=== PATIENT | female | born 1980 | race Asian ===

== ENCOUNTER 2016-11-16 04:33 | Inpatient (IN) | payer BC ==
[~2016-11-16] VITALS: Ht 157.5 cm; Wt 50.4 kg
[2016-11-16 06:49] VITALS: Ht 157.5 cm; Wt 50.4 kg
[2016-11-16 06:52] VITALS: BP 109/73
[2016-11-16 06:57] VITALS: BP 109/75; RESP 18
[2016-11-16 09:03] VITALS: BP 101/66; RESP 16
[2016-11-16] MEDS ORDERED: hydrALAzine 20 MG INJ IV PRN (09:30)
[2016-11-16] MEDS ORDERED: NACL 0.9% 3 ML SYG IV SCH (09:30)
[2016-11-16] MEDS ORDERED: NA PHOSPHATE/BIPHOS 133 ML ENEMA PR PRN (09:30)
[2016-11-16] MEDS ORDERED: DOCUSATE SODIUM 100 MG CAP PO PRN (09:30)
[2016-11-16] MEDS ORDERED: ACETAMINOPHEN 325 MG TAB PO PRN (09:30)
[2016-11-16] MEDS ORDERED: ALBUTEROL/IPRATROPIUM (NEB) 3 ML AMP HHN PRN (09:30)
[2016-11-16] MEDS ORDERED: NITROGLYCERIN (SL) 0.4 MG TAB SL PRN (09:30)
[2016-11-16] MEDS ORDERED: MAGNESIUM HYDROXIDE 30ML CUP PO PRN (09:30)
[2016-11-16] MEDS ORDERED: LORAZEPAM 2 MG INJ IV PRN (09:30)
[2016-11-16] MEDS: ONDANSETRON 4 MG INJ IV PRN ×2 (09:47→15:51)
[2016-11-16] MEDS: SOD CHLORIDE 0.45% 1,000 ML IV SCH ×3 (09:47→23:42)
[2016-11-16] MEDS: morphine 2 MG INJ IV PRN (09:47)
[2016-11-16 10:36] LABS: INR 1.04; PROTIME 13.6 Sec (12.2-14.2); PT RATIO 1.1
[2016-11-16 10:37] LABS: PARTIAL THROMBOPLASTIN TIME 33.8 Sec (25.0-35.0)
--- NOTE | 2016-11-16 10:38 | CONS ---
Date/Time of Note Date/Time of Note DATE: 11/16/16 TIME: 10:38 Assessment/Plan Assessment/Plan Additional Assessment/Plan [facility] IN[facility]IENT CONSULTATION NOTE DATE OF SERVICE: 11/16/2016 PLACE OF SERVICE: [facility], fourth floor ASSESSMENT AND PLAN: A very-pleasant 36-year-old lady presenting with thrombosed external hemorrhoid, grade 4. She requires exam under anesthesia and likely, hemorrhoidectomy. Unknown whether there is an underlying issue with rectal prolapse given the patient's history. I can discern this a bit better under anesthesia with proctoscopy. Patient may require further expertise if complicated pelvic floor issues are identified. Explained to patient and her and answered all questions. The patient and her appear to understand and agreed with the plans. With above assessment, I've recommended the followin. Agree with inpatient status 2. Apply Xylocaine Jelly and sprinkle sugar on the hemorrhoid area 3. Treat symptoms 4. Stool softeners 5. On the schedule for exam under anesthesia and possible hemorrhoidectomy Thank you very much for having me involved in the care of this very pleasant patient and wonderful family. If you have any questions, please feel free to contact me at [phone]. Nature of presenting problem: Low to moderate severity Please note that, given the limited number of diagnoses or management options, the limited amount and/or complexity of data needed to be reviewed, and low to moderate risk of complications and/or morbidity or mortality, this qualifies as low to moderate complexity type of decision-making. Disclaimer: Inadvertent spelling and grammatical errors are likely due to EHR/ dictation software use and do not reflect on the quality of delivered patient care. Also, please note that the electronic time recorded on this node does not necessarily reflect the actual time of the visit. Updated clinical summary: Patient is a very-pleasant 36-year-old lady presenting with thrombosed external hemorrhoid, grade 4. She requires exam under anesthesia and likely, hemorrhoidectomy. Comorbidities: 1. Long history of anal issues with 2 month history of hemorrhoid pain. Unable to get access to care. CONSULTATION REQUESTED BY: Piedad Bee MD HISTORY OF PRESENT ILLNESS: The patient is a very-pleasant 36-year-old lady presenting with thrombosed external hemorrhoid, grade 4. She requires exam under anesthesia and likely, hemorrhoidectomy. Rectal pain of 2 months duration. Painful BM and rectal bleeding. Constant in nature. Moderate degree of symptoms. Bowel movements make it worse. No history of bleeding tendencies. Patient reports having long-term issues with protruding tissue from her anus that until now have been easily reducible by herself. She has had 2 months of pain and has sought care from her primary care physician who referred her to a specialist. They have not been able to see a specialist for the last 2-3 weeks and they were in the process of getting rerouted to another specialist. The symptoms became unbearable and the patient was transferred to [facility] after being seen at [facility] due to insurance reasons. Patient herself did not have any other major complaints during my visit. No prior childbirth (patient did have a miscarriage many years ago and has not had any vaginal deliveries, pelvic operations, or other perianal operations). Weight has been stable. Issues with constipation. ALLERGIES: NO KNOWN DRUG ALLERGIES MEDICATIONS Documented in the electronic records and reviewed by me. Please see the electronic records for details, as well as details for inpatient medications which were also reviewed by me. Home medications include aspirin, docusate, and loratadine. SOCIAL HISTORY: The patient lives with family.-Tob;-ETOH;-IVDU FAMILY HISTORY: There are no significant medical, surgical or oncologic issues in the family as reported by the patient or reflected in the chart. REVIEW OF SYSTEMS: Other than mentioned above, there were no other pertinent positives or pertinent negatives in an otherwise complete 14 point review of systems. PHYSICAL EXAMINATION GENERAL: The patient appears to be a very pleasant [place] lady of non- but [place] descent lying in bed, appearing stated age, and otherwise in no acute distress. BMI: 20.3 VITAL SIGNS: Temperature 97.8, blood pressure 101/66, respiratory rate 16, pulse 56, pulse oximetry 97% on room air. (please also see auto important data if available as well as the electronic records) HEENT: Normocephalic and atraumatic. Extraocular muscles and hearing are grossly intact bilaterally and symmetrically. Sclerae are nonicteric. Oral cavity is clear; oral mucosa appear to be pink and moist. Dentition: fair. NECK: Supple. There is no lymphadenopathy or JVD. There is no submental, submandibular or supraclavicular lymphadenopathy. CHEST: Rises symmetrically with each breath; patient is breathing comfortably. There are no audible wheezes, rales or rhonchi on the gross exam. HEART: Pulse is regular and palpable on the right wrist. Capillary refill is normal. Carotid pulses are palpable bilaterally and symmetrically in the neck. EXTREMITIES: Lower extremities contain no pitting edema around the ankles bilaterally and symmetrically. ABDOMEN: Abdomen is soft, nontender and nondistended. No evidence of ascites, organomegaly, caput medusae, engorged subcutaneous veins, or other abnormalities. There are no peritoneal signs or guarding. Annual exam was done but in a limited fashion. There was external hemorrhoids which were tender to palpation. There is no evidence of bleeding. No evidence of necrosis. I did not do a rectal exam and reserve this for exam under anesthesia. SKIN: Appears to be pink and feels warm to touch. NEUROLOGIC: Awake, alert, and follows commands appropriately. LABORATORY DATA: Outside laboratory review from [facility] 11/15/2016: Urinalysis negative for nitrites or leukocyte esterase. White blood cell count 6.5, globin 12.7, platelets 177. INR 1.1. Electrolytes normal. CO2 28. Creatinine 0.99. Regnancy test negative. IMAGING: No available images at the time of admission. Consultation Date/Type/Reason Admit Date/Time Nov 16, 2016 at 06:27 Exam/Review of Systems Vital Signs Vitals Vital Signs Date Time Temp Pulse Resp B/P Pulse Ox O2 Delivery O2 Flow Rate FiO2 11/16/16 09:03 97.8 56 16 101/66 97 Results Results 24 hrs Laboratory Tests Test 11/16/16 09:26 Prothrombin Time 13.6 Prothrombin Time Ratio 1.1 INR International Normalized Ratio 1.04 Activated Partial Thromboplast Time 33.8 Medications Medications Current Medications Ondansetron HCl (Zofran Inj) 4 mg Q6H PRN IV NAUSEA AND/OR VOMITING Last administered on 11/16/16t 09:47; Admin Dose 4 MG; Start 11/16/16 at 09:30 Acetaminophen (Tylenol Tab) 650 mg Q6H PRN PO PAIN LEVEL 1-3 OR FEVER; Start at 09:30 Acetaminophen/ Hydrocodone Bitart ([place] (5/325)) 1 tab Q6H PRN PO MODERATE PAIN LEVEL 4-6; Start 11/16/16 at 09:30 Morphine Sulfate (morphine) 2 mg Q4H PRN IV SEVERE PAIN LEVEL 7-10 Last administered on 11/16/16 09:47; Admin Dose 2 MG; Start 11/16/16 at 09:30 Docusate Sodium (Colace) 100 mg Q12H PRN PO CONSTIPATION; Start 11/16/16 at 09: 30 Magnesium Hydroxide (Milk Of Mag) 30 ml DAILY PRN PO CONSTIPATION; Start at 09:30 Sodium Biphosphate/ Sodium Phosphate (Fleet Enema) 133 ml DAILY PRN [place] CONSTIPATION; Start 11/16/16 at 09:30 Pantoprazole (Protonix Iv) 40 mg DAILY@06 IV ; Start 11/17/16 at 06:00 Heparin Sodium (Porcine) 5000 unit 5,000 unit Q12 SC ; Start 11/16/16 at 21:00 Sodium Chloride (1/2 NS) 1,000 ml @ 75 mls/hr [id number] IV Last administered on 11/16/16 09:47; Admin Dose 75 MLS/HR; Start 11/16/16 at 09:04 Lorazepam (Ativan) 0.5 mg Q6H PRN IV ANXIETY; Start 11/16/16 at 09:30 Hydralazine HCl (Apresoline) 10 mg Q6H PRN IV ELEVATED BLOOD PRESSURE; Start at 09:30 Nitroglycerin (Nitroglycerin (Sl Tab) 0.4 Mg) 1 tab Q5M PRN SL ANGINA; Start at 09:30 DEANN MALONE M.D. Nov 16, 2016 10:38
[2016-11-16] MEDS ORDERED: LIDOCAINE 2% JELLY 30 ML TOP SCH (11:00)
[2016-11-16] MEDS ORDERED: LIDOCAINE 2% JELLY 5 ML TOP SCH (11:30)
--- NOTE | 2016-11-16 12:30 | HP ---
DATE OF ADMISSION: 11/16/2016 CHIEF COMPLAINT: Rectal pain. HISTORY OF PRESENT ILLNESS: A 36-year-old female with no significant past medical history, who was transferred over to our hospital due to insurance purposes as she initially presented there earlier today with rectal pain that has been going off and on for the last two months. Apparently she has a history of hemorrhoids and complaining of painful bowel movements and rectal bleeding. She is having some mild headache symptoms but no loss of consciousness. No blurry vision. No dysuria. No hematuria. No upper GI bleeding. No fevers or chills. No diarrhea or constipation. When she went to the outside hospital, she was evaluated by the ER team and apparently General Surgery team there and was diagnosed with large bleeding thrombosed external hemorrhoids, but again transferred over here due to insurance purposes and has been evaluated by surgery team here. PAST MEDICAL HISTORY: As above. ALLERGIES: NO KNOWN DRUG ALLERGIES. MEDICATIONS: None. PAST SURGICAL HISTORY: None. FAMILY HISTORY: Noncontributory. SOCIAL HISTORY: Negative for smoking, drinking, or IV drug abuse. PHYSICAL EXAMINATION: VITAL SIGNS: Today vital signs, T-max 37.1 Celsius, respirations 18, blood pressure 143/86, satting at 99 percent room air. GENERAL: Patient lying in bed, answers questions appropriately. No acute distress. HEENT: Pupils equal, round, reactive to light. Extraocular muscles are intact. NECK: Supple. No thyromegaly. LUNGS: Clear to auscultation bilaterally. CARDIOVASCULAR: S1, S2 heard. No rubs or gallops. ABDOMEN: Soft, nontender, nondistended. Normal bowel sounds. No rebound or guarding. GENITOURINARY: Deferred. MUSCULOSKELETAL: No lower extremity edema bilaterally. NEUROLOGIC: No focal deficits. LABS: UA shows trace ketones, but negative for nitrites, negative leukocyte esterase. WBC 6.5, hemoglobin 12.7, hematocrit 37.4, platelets 177. Sodium 138, potassium 4.4, chloride 102, CO2 28, BUN 9, creatinine 0.99, glucose of 96. ASSESSMENT AND PLAN: A 36-year-old female with rectal pain and rectal bleeding with signs of large bleeding thrombosed external hemorrhoids. 1. Thrombosed external hemorrhoids. We will admit the patient to med/surg and will get surgery consult. Per discussion with them through the nursing staff, most likely patient will need surgery in the next 24 hours. Continue pain control, medications, IV fluids, check TSH, A1c, lipid panel. Monitor for any signs of bleeding. Check CBC and basic metabolic panel in the morning. 2. GI prophylaxis. Protonix. 3. Next DVT prophylaxis. SCDs. Dictated By: Dewayne Bee MD /damon/stacie /Document#: [id number]
[2016-11-16] MEDS: HYDROCODONE/APAP (5/325) TAB PO PRN (15:43)
[2016-11-16 20:00] VITALS: BP 107/67; RESP 16
[2016-11-16] MEDS ORDERED: HEPARIN 5,000 UNIT/0.5 ML VIAL SC SCH (21:00)
[2016-11-17] VITALS (21 sets, daily range): BP systolic 91–111; BP diastolic 49–70; PULSE 69–94; RESP 16–77
[2016-11-17] MEDS: morphine 2 MG INJ IV PRN ×2 (02:32→08:54)
[2016-11-17 05:24] LABS: BASOPHIL # 0.1 10^3/ul (0.0-0.1); EOSINOPHILS # 0.3 10^3/ul (0.0-0.5); EOSINOPHILS % 4.2 % (0.0-7.0); HEMATOCRIT 36.5 % (37.0-47.0); HEMOGLOBIN 12.2 g/dl (12.0-16.0); LYMPHOCYTES # 1.7 10^3/ul (0.8-2.9); LYMPHOCYTES % 25.3 % (15.0-51.0); MEAN CORPUSCULAR HEMOGLOBIN 29.1 pg (29.0-33.0); MEAN CORPUSCULAR HGB CONC 33.4 g/dl (32.0-37.0); MEAN CORPUSCULAR VOLUME 87.1 fl (82.0-101.0); MEAN PLATELET VOLUME 11.4 fl (7.4-10.4); MONOCYTE # 0.4 10^3/ul (0.3-0.9); MONOCYTES % 6.1 % (0.0-11.0); NEUTROPHIL # 4.2 10^3/ul (1.6-7.5); NEUTROPHILS % 63.1 % (39.0-77.0); PLATELET COUNT 174 10^3/UL (140-415); RED BLOOD COUNT 4.19 10^6/ul (4.20-5.40); RED CELL DISTRIBUTION WIDTH 11.2 % (11.5-14.5); WHITE BLOOD COUNT 6.7 10^3/ul (4.8-10.8)
[2016-11-17 05:41] LABS: CALCIUM 8.8 mg/dl (8.4-10.2); CHOL/HDL RATIO 3.6 RATIO; CREATININE 0.78 mg/dl (0.44-1.00); MAGNESIUM 1.8 mg/dl (1.7-2.5); PHOSPHORUS 4.2 mg/dl (2.5-4.9); POTASSIUM 4.2 mmol/L (3.5-5.1)
[2016-11-17] MEDS ORDERED: PANTOPRAZOLE 40 MG INJ IV SCH (06:00)
[2016-11-17 07:51] LABS: THYROID STIMULATING HORMONE 0.621 MIU/L (0.465-4.680)
[2016-11-17] MEDS ORDERED: BUPIVACAINE 0.5%/EPI (SDV) 10 ML INJ ONE (13:06)
[2016-11-17] MEDS ORDERED: PROPOFOL 0 ML ONE (13:08)
[2016-11-17] MEDS ORDERED: SUCCINYLCHOLINE CHLORIDE 100 MG/5 ML SYG IV ONE ×2 (13:08→13:54)
[2016-11-17] MEDS ORDERED: ROCURONIUM 50 MG INJ ONE ×2 (13:08→13:54)
[2016-11-17] MEDS ORDERED: FENTAnyl 50 MCG/ML VIAL ONE (13:09)
[2016-11-17] MEDS ORDERED: METOCLOPRAMIDE 10 MG INJ ONE (13:09)
[2016-11-17] MEDS ORDERED: CEFAZOLIN 1 GM INJ ONE (13:09)
[2016-11-17] MEDS ORDERED: ONDANSETRON 4 MG INJ ONE (13:09)
[2016-11-17] MEDS ORDERED: FENTAnyl 50 MCG/ML VIAL IV PRN ×2 (13:30)
[2016-11-17] MEDS ORDERED: MEPERIDINE 25 MG INJ IV PRN (13:30)
[2016-11-17] MEDS ORDERED: ONDANSETRON 4 MG INJ IV PRN (13:30)
[2016-11-17] MEDS ORDERED: HYDROmorphONE (0.2 MG/ML) 10ML SYG IV PRN ×3 (13:30)
--- NOTE | 2016-11-17 13:37 | HPN ---
Date/Time of Note Date/Time of Note DATE: 11/17/16 TIME: 13:37 Interval H&P Admission Note Pt. seen H&P reviewed: No system changes Pt. seen H&P reviewed. No system changes (I attest that I have seen and examined the patient and reviewed the operation in detail, as well as its risks , benefits and alternatives of the operation). I attest that I have seen and examined the patient and reviewed in detail the operation, and its associated risks, benefits and alternative. I have answered all the patient's questions to the best of my ability and the patient wishes to proceed. Please refer to rest of electronic medical record for additional updates. DEANN MALONE M.D. Nov 17, 2016 13:37
[2016-11-17] MEDS ORDERED: PROPOFOL 20 ML ONE (13:54)
[2016-11-17] MEDS ORDERED: LIDOCAINE 2% 20 ML UROJET SYRINGE ONE (14:42)
[2016-11-17] MEDS: D5W-0.45 NACL + KCL 20 MEQ 1,000 ML IV SCH ×2 (15:03→19:07)
--- NOTE | 2016-11-17 15:21 | OPR ---
Date/Time of Note Date/Time of Note DATE: 11/17/16 TIME: 15:20 Operative Report Operative\Procedure Findings [facility] PLACE OF SERVICE: [facility] DATE OF SURGERY: 11/17/2016 PREOPERATIVE DIAGNOSIS: 1. Long history of anal issues with 2 month history of hemorrhoidal pain and inability to get access to care POSTOPERATIVE DIAGNOSIS: 1. Long history of anal issues with 2 month history of hemorrhoidal pain and inability to get access to care; left posterior lateral external hemorrhoid tissue pedicle, 5:00; right anterior pedicle internal hemorrhoid tissue pedicle , 11:00 OPERATION: 1. Hemorrhoidectomy left posterior lateral external hemorrhoid tissue pedicle, 5:00 2. Hemorrhoidectomy right anterior pedicle internal hemorrhoid tissue pedicle, 11:00 SURGEON: Deann Malone M.D. BOAT TESTER: Jenn ANESTHESIA: General endotracheal tube anesthesia ANESTHESIOLOGIST: Keyshawn Woods M.D. BRIEF SUMMARY: An otherwise uncomplicated hemorrhoidectomy was performed with findings of both external and internal hemorrhoids. Updated clinical summary: Patient is a very-pleasant 36-year-old lady presenting with thrombosed external hemorrhoid with significant pain. She requires exam under anesthesia and likely , hemorrhoidectomy. Comorbidities: 1. Long history of anal issues with 2 month history of hemorrhoid pain. Unable to get access to care. BRIEF HISTORY: The patient is a very pleasant 36-year-old lady presenting with thrombosed external hemorrhoid with significant pain. She required exam under anesthesia and likely, hemorrhoidectomy. Unknown whether there is an underlying issue with rectal prolapse given the patient's history. I can discern this a bit better under anesthesia with proctoscopy. Patient may require further expertise if complicated pelvic floor issues are identified. Explained to patient and her and answered all questions. The patient and her appear to understand and agreed with the plans. We reviewed the operation in detail as well as the risks, benefits, alternatives, and expected outcomes of this operation. After careful consideration of all the risks, benefits, and alternatives, the patient and family appeared to understand those risks and wished to proceed with surgery. For a detailed report of my consultation with patient and family, please refer to my separate consultation note. STATEMENT OF THE INFORMED CONSENT: The patient and family appeared to understand the risks of the operation to include, but not be limited to risk of postoperative pain and scar tissue, possible infection or bleeding requiring other interventions such as opening the wound, placement of drainage catheters, or other operative interventions; possible injury to surrounding to structures including bowel, soft tissue, nerves and vessels, anal sphincter muscles, and other structures nearby, possibly requiring other interventions or procedures; possible other source of sepsis such as urinary tract infections or pneumonias, or other sources of potentially life threatening problems such as deep venous thrombus formation causing pulmonary embolism, myocardial arrhythmias and infarctions, and even . I was very clear that the patient's pain and discomfort postoperatively can take between 2-6 weeks to resolve completely. After careful consideration of all their options, the patient and family appeared to understand and wished to proceed with surgery. DESCRIPTION OF PROCEDURE: After obtaining informed consent, the patient was brought into the operating room and was placed in a normal supine position, where successful general endotracheal tube anesthesia was performed. Intravenous access was already in place and intravenous antimicrobials had been appropriately chosen and dosed prior to the operation. The patient was placed in a prone jackknife position and her perineum and perianal area were prepped and draped in the usual sterile fashion. We then called a surgical time-out where the patient's identification, date of , nature of the operation, allergies, presence of intravenous antimicrobials, presence of needed equipment , and any other concerns were reviewed and agreed upon by all members of the operating room team. I then started the operation by performing an exam under anesthesia. I first injected the perianal area with half percent Marcaine with epinephrine (20 cc used) and then performed a rectal exam. There was evidence of internal hemorrhoid in the right anterior position. Patient had an external thrombosed hemorrhoid as described above. No other abnormality of the anus or the rectum was noted with a digital rectal exam. There was stool in the rectal vault. There was no bleeding. I then used an anoscope to examine the anus. The external thrombosed hemorrhoid on the left posterior 5 o'clock position was composed of 2 pedicles. There was a thrombosed internal hemorrhoid that appeared to be grade 3/grade 4 located in the right anterior 11 o'clock position with the 12 o'clock position pointing to the perineal body. With this information, I proceeded to remove the external thrombosed hemorrhoids using the LigaSure hemorrhoid device. Care was taken to preserve the internal and external sphincter muscles. I used a 3-0 Vicryl suture to suture ligate the base of the pedicle prior to transecting across the remaining venous pad and sending the specimen to pathology for permanent sections. We then repeated this process on the right anterior 11 o'clock position internal hemorrhoid by removing this tissue again using the LigaSure hemorrhoid device. I again used a 3-0 Vicryl suture to suture ligate the base of the pedicle prior to transecting across the remaining venous and again sending the specimen to pathology for permanent sections as a separate specimen. Adequate venous stasis was then ensured and appropriate gauze packing with lidocaine jelly was inserted into the rectum and anus with the tail out. At the end of the operation, both the sponge count and needle count were reportedly correct x2. The patient tolerated the procedure without any reported complications. ESTIMATED BLOOD LOSS: Less than 10 mL. BLOOD OR BLOOD PRODUCT TRANSFUSIONS: None to my knowledge. SPECIMENS: 1. Left posterior lateral external hemorrhoid tissue pedicle, 5:00 2. Right anterior pedicle internal hemorrhoid tissue pedicle, 11:00 COMPLICATIONS: None. DISPOSITION: Recovery area. Disclaimer: Inadvertent spelling and grammatical errors are likely due to EHR/ dictation software use and do not reflect on the quality of delivered patient care. DEANN MALONE M.D. Nov 17, 2016 15:21
[2016-11-17] MEDS ORDERED: BISACODYL 10 MG SUPP PR PRN (15:30)
[2016-11-17] MEDS ORDERED: NA PHOSPHATE/BIPHOS 133 ML ENEMA PR PRN (15:30)
[2016-11-17] MEDS ORDERED: DOCUSATE SODIUM 100 MG CAP PO PRN (15:30)
[2016-11-17] MEDS ORDERED: HYDROmorphONE 1 MG/ML SYG IV PRN ×2 (15:30)
--- NOTE | 2016-11-17 15:59 | PN ---
Date/Time of Note Date/Time of Note DATE: 11/17/16 TIME: 15:59 Assessment/Plan VTE Prophylaxis VTE Prophylaxis Intervention: LMWH, SCD's Lines/Catheters IV Catheter Type (from Nrsg): Saline Lock Assessment/Plan Assessment/Plan 36-year-old female with rectal pain and rectal bleeding with signs of large bleeding thrombosed external hemorrhoids. #rectal pain/hemorrhoids: -gen surg to do EUA/possible hemorrhoidectomy today -cont pain control #prophx: DVT prophx dispo/FEN as per gen surg Subjective 24 Hr Interval Summary Free Text/Dictation Pt seen this AM. Pain controlled when she gets pain meds Exam/Review of Systems Vital Signs Vitals Vital Signs Date Time Temp Pulse Resp B/P Pulse Ox O2 Delivery O2 Flow Rate FiO2 11/17/16 15:52 74 42 98/65 100 11/17/16 15:22 Room Air 11/17/16 15:02 97.9 11/16/16 10:55 21 Intake and Output 11/16/16 11/16/16 11/17/16 15:00 23:00 07:00 Intake Total 945 ml 970 ml Output Total 100 ml Balance 845 ml 970 ml Exam nad laying in bed no rashes no mrg lungs clear abd soft Results Result Diagram: 11/17/16 0444 11/17/16 0444 Results 24 hrs Laboratory Tests Test 11/17/16 04:44 White Blood Count 6.7 Red Blood Count 4.19 L Hemoglobin 12.2 Hematocrit 36.5 L Mean Corpuscular Volume 87.1 Mean Corpuscular Hemoglobin 29.1 Mean Corpuscular Hemoglobin Concent 33.4 Red Cell Distribution Width 11.2 L Platelet Count 174 Mean Platelet Volume 11.4 H Neutrophils % 63.1 Lymphocytes % 25.3 Monocytes % 6.1 Eosinophils % 4.2 Basophils % 1.0 Nucleated Red Blood Cells % 0.0 Neutrophils # 4.2 Lymphocytes # 1.7 Monocytes # 0.4 Eosinophils # 0.3 Basophils # 0.1 Nucleated Red Blood Cells # 0.0 Sodium Level 141 Potassium Level 4.2 Chloride Level 104 Carbon Dioxide Level 22 Anion Gap 19 H Blood Urea Nitrogen 13 Creatinine 0.78 Glucose Level 59 L Hemoglobin A1c 5.2 Calcium Level 8.8 Phosphorus Level 4.2 Magnesium Level 1.8 Triglycerides Level 43 Cholesterol Level 149 LDL Cholesterol, Calculated 99 HDL Cholesterol 41 Cholesterol/HDL Ratio 3.6 Thyroid Stimulating Hormone (TSH) 0.621 Medications Medications Current Medications Ondansetron HCl (Zofran Inj) 4 mg Q6H PRN IV NAUSEA AND/OR VOMITING Last administered on 11/16/16 15:51; Admin Dose 4 MG; Start 11/16/16 at 09:30 Acetaminophen (Tylenol Tab) 650 mg Q6H PRN PO PAIN LEVEL 1-3 OR FEVER Last administered on 11/16/16 12:25; Admin Dose 650 MG; Start 11/16/16 at 09:30 Acetaminophen/ Hydrocodone Bitart ([place] (5/325)) 1 tab Q6H PRN PO MODERATE PAIN LEVEL 4-6 Last administered on 11/16/16 15:43; Admin Dose 1 TAB; Start at 09:30 Docusate Sodium (Colace) 100 mg Q12H PRN PO CONSTIPATION; Start 11/16/16 at 09: 30 Magnesium Hydroxide (Milk Of Mag) 30 ml DAILY PRN PO CONSTIPATION; Start at 09:30 Sodium Biphosphate/ Sodium Phosphate (Fleet Enema) 133 ml DAILY PRN [place] CONSTIPATION; Start 11/16/16 at 09:30 Lorazepam (Ativan) 0.5 mg Q6H PRN IV ANXIETY; Start 11/16/16 at 09:30 Hydralazine HCl (Apresoline) 10 mg Q6H PRN IV ELEVATED BLOOD PRESSURE; Start at 09:30 Nitroglycerin 1 tab 1 tab Q5M PRN SL ANGINA; Start 11/16/16 at 09:30 Potassium Chloride/Dextrose/ Sod Cl (D5-1/2ns + KCl 20 Meq) 1,000 ml @ 100 mls/ hr Q10H IV ; Start 11/17/16 at 15:03 Acetaminophen/ Hydrocodone Bitart ([place] (5/325)) 1 tab Q4H PRN PO PAIN LEVEL 4 -7; Start 11/17/16 at 15:30 Acetaminophen/ Hydrocodone Bitart ([place] (5/325)) 2 tab Q4H PRN PO PAIN LEVEL 7 -10; Start 11/17/16 at 15:30 Hydromorphone HCl (Dilaudid) 0.5 mg Q2H PRN IV PAIN; Start 11/17/16 at 15:30 Hydromorphone HCl (Dilaudid) 1 mg Q2H PRN IV PAIN; Start 11/17/16 at 15:30 Docusate Sodium (Colace) 100 mg BID PRN PO CONSTIPATION; Start 11/17/16 at 15: 30 Bisacodyl (Dulcolax Supp) 10 mg BID PRN [place] CONSTIPATION; Start 11/17/16 at 15: 30 Sodium Biphosphate/ Sodium Phosphate (Fleet Enema) 133 ml BID PRN [place] CONSTIPATION; Start 11/17/16 at 15:30 Enoxaparin Sodium (Lovenox) 40 mg DAILY SC ; Start 11/18/16 at 09:00 Famotidine (Pepcid) 40 mg HS PO ; Start 11/17/16 at 21:00 RUSSELL ADRIAN MD Nov 17, 2016 15:59
[2016-11-17] MEDS ORDERED: FAMOTIDINE 20 MG TAB PO SCH (21:00)
[2016-11-17] MEDS: HYDROCODONE/APAP (5/325) TAB PO PRN ×2 (22:20→23:38)
[2016-11-18] VITALS: BP 112/68
[2016-11-18] MEDS: HYDROCODONE/APAP (5/325) TAB PO PRN ×4 (03:46→14:33)
[2016-11-18] MEDS: D5W-0.45 NACL + KCL 20 MEQ 1,000 ML IV SCH ×2 (04:21→11:03)
[2016-11-18 05:11] LABS: BASOPHIL # 0.1 10^3/ul (0.0-0.1); BASOPHILS % 0.8 % (0.0-2.0); EOSINOPHILS # 0.4 10^3/ul (0.0-0.5); EOSINOPHILS % 4.6 % (0.0-7.0); HEMATOCRIT 33.4 % (37.0-47.0); HEMOGLOBIN 11.6 g/dl (12.0-16.0); LYMPHOCYTES # 2.2 10^3/ul (0.8-2.9); LYMPHOCYTES % 24.8 % (15.0-51.0); MEAN CORPUSCULAR HEMOGLOBIN 29.5 pg (29.0-33.0); MEAN CORPUSCULAR HGB CONC 34.7 g/dl (32.0-37.0); MEAN PLATELET VOLUME 11.3 fl (7.4-10.4); MONOCYTE # 0.6 10^3/ul (0.3-0.9); MONOCYTES % 6.6 % (0.0-11.0); NEUTROPHIL # 5.6 10^3/ul (1.6-7.5); NEUTROPHILS % 62.9 % (39.0-77.0); PLATELET COUNT 182 10^3/UL (140-415); RED BLOOD COUNT 3.93 10^6/ul (4.20-5.40); RED CELL DISTRIBUTION WIDTH 11.5 % (11.5-14.5); WHITE BLOOD COUNT 8.9 10^3/ul (4.8-10.8)
[2016-11-18 05:51] LABS: CALCIUM 8.3 mg/dl (8.4-10.2); CREATININE 0.76 mg/dl (0.44-1.00); POTASSIUM 4.2 mmol/L (3.5-5.1)
[2016-11-18 07:59] VITALS: BP 97/52; RESP 16
[2016-11-18] MEDS ORDERED: ENOXAPARIN 40 MG/0.4 ML SYG SC SCH (09:00)
--- NOTE | 2016-11-18 10:43 | PN ---
Date/Time of Note Date/Time of Note DATE: 11/18/16 TIME: 10:42 Assessment/Plan Lines/Catheters IV Catheter Type (from Nrsg): Peripheral IV Assessment/Plan Assessment/Plan [facility] Progress Note Date of Service: 11/18/2016 Place of service: [facility] fourth floor Today's Assessment & Plan: Overall stable and doing well. No indication of major postoperative complications or surgical site infections. No indication for acute surgical intervention. Patient okay from my standpoint to discharge home. With above assessment, I've recommended the following for today: 1. Discharge home 2. Please make sure patient has Colace prescription in addition to pain medications 3. Sitz baths 2 or 3 times a day or more as needed 4. Discharge instructions: "Please call [phone] if any of fever, nausea, vomiting, discharge from wound, wound redness, increase or sudden pain, blood in stool or vomit, or any other unusual signs or symptoms. Also, please call the same number in a few days to schedule an appointment for your follow up visit. Patient may remove dressings tomorrow. Showers OK starting tomorrow. No swimming , hot tub or bath for 2 weeks. No lifting more than 25 lbs for 8 weeks." Thank you again for your great care of this very pleasant patient and wonderful family. If there are any questions, please feel free to call me at [phone]. Nature of presenting problem: Low severity Please note that, given the limited number of diagnoses or management options, the limited amount and/or complexity of data needed to be reviewed, and low to moderate risk of complications and/or morbidity or mortality, this qualifies as low complexity type of decision-making. Disclaimer: Inadvertent spelling and grammatical errors are likely due to EHR/ dictation software use and do not reflect on the quality of delivered patient care. Also, please note that the electronic time recorded on this node does not necessarily reflect the actual time of the visit. Updated clinical summary: Patient is a very-pleasant 36-year-old lady presenting with thrombosed external hemorrhoid with significant pain. She requires exam under anesthesia and likely , hemorrhoidectomy. Comorbidities: 1. Long-standing problems with internal and external hemorrhoids with difficulty to access to care; status post hemorrhoidectomy left posterior lateral external hemorrhoid tissue pedicle, 5:00 and hemorrhoidectomy right anterior pedicle internal hemorrhoid tissue pedicle, 11:00 [facility] 11/17/2016 Subjective: No major events or complaints; no abd pain and under control with medications; no n/v/d; no sob or cp; + flatus; - BM; + activity; no significant perianal pain Objective: Vitals: See below I's & O's: See below Exam: GENERAL: On exam, the patient was lying in bed and appeared to be comfortable and in no acute distress. ABDOMEN: Soft, nontender and nondistended. Perianal wounds are clean, dry and intact without any evidence of erythema, edema, discharge, or hernia. There are no peritoneal signs or guarding. SKIN: Skin appears to be pink and feels warm to touch. NEUROLOGIC: Patient is awake, alert, and follows commands appropriately. Labs: See below Exam/Review of Systems Vital Signs Vitals Vital Signs Date Time Temp Pulse Resp B/P Pulse Ox O2 Delivery O2 Flow Rate FiO2 11/18/16 07:59 97.8 76 16 97/52 98 11/18/16 04:17 21 11/17/16 15:22 Room Air Intake and Output 11/17/16 11/17/16 11/18/16 15:00 23:00 07:00 Intake Total 1260 ml 1900 ml Output Total 5 ml Balance -5 ml 1260 ml 1900 ml Results Result Diagram: 11/18/16 0421 11/18/16 0421 DEANN MALONE M.D. Nov 18, 2016 10:42
--- NOTE | 2016-11-18 12:31 | PDOCDIS ---
Discharge Instructions CONDITION Patient Condition: Stable FOLLOW UP/APPOINTMENTS Follow-up Plan Sitz baths 2 or 3 times a day or more as needed Please call [phone] if any of fever, nausea, vomiting, discharge from wound , wound redness, increase or sudden pain, blood in stool or vomit, or any other unusual signs or symptoms. Also, please call the same number in a few days to schedule an appointment for your follow up visit. Patient may remove dressings tomorrow. Showers OK starting tomorrow. No swimming , hot tub or bath for 2 weeks. No lifting more than 25 lbs for 8 weeks. RUSSELL ADRIAN MD Nov 18, 2016 12:31
[2016-11-18] MEDS ORDERED: DOCU-144 PO (12:33)
[2016-11-18] MEDS ORDERED: HYDR-3498 PO (12:33)
--- NOTE | 2016-11-18 12:34 | DS ---
Date/Time of Note Date/Time of Note DATE: 11/18/16 TIME: 12:33 Discharge Summary Admission/Discharge Info Admit Date/Time Nov 16, 2016 at 06:27 Discharge Date/Time Discharge Diagnosis rectal pain from external hemorrhoids Patient Condition: Good Consults general surgery Procedures 7.24 OPERATION: 1. Hemorrhoidectomy left posterior lateral external hemorrhoid tissue pedicle, 5:00 2. Hemorrhoidectomy right anterior pedicle internal hemorrhoid tissue pedicle, 11:00 Hx of Present Illness A 36-year-old female with no significant past medical history, who was transferred over to our hospital due to insurance purposes as she initially presented there earlier today with rectal pain that has been going off and on for the last two months. Apparently she has a history of hemorrhoids and complaining of painful bowel movements and rectal bleeding. She is having some mild headache symptoms but no loss of consciousness. No blurry vision. No dysuria. No hematuria. No upper GI bleeding. No fevers or chills. No diarrhea or constipation. When she went to the outside hospital, she was evaluated by the ER team and apparently General Surgery team there and was diagnosed with large bleeding thrombosed external hemorrhoids, but again transferred over here due to insurance purposes and has been evaluated by surgery team here. Hospital Course Pt seen by gen surg, underwent hemorrhoidectomy x 2 7.. Post op course uncomplicated. Pt discharged with pain meds, stool softeners, and gen surg follow up Home Meds Active Scripts Docusate Sodium* (Colace*) 100 Mg Capsule, 200 MG PO DAILY, #30 CAP Prov:RUSSELL ADRIAN MD 11/18/16 Hydrocodone Bit-Acetaminophen (Hydrocodone Bit-APAP) 5-325MG Tablet, 1 TAB PO Q4H Y for PAIN LEVEL 4-7 for 5 Days, #10 TAB Prov:RUSSELL ADRIAN MD 11/18/16 Follow-up Plan 3. Sitz baths 2 or 3 times a day or more as needed "Please call [phone] if any of fever, nausea, vomiting, discharge from wound, wound redness, increase or sudden pain, blood in stool or vomit, or any other unusual signs or symptoms. Also, please call the same number in a few days to schedule an appointment for your follow up visit. Patient may remove dressings tomorrow. Showers OK starting tomorrow. No swimming , hot tub or bath for 2 weeks. No lifting more than 25 lbs for 8 weeks." Primary Care Provider Nasim Ulloa Time spent on discharge: > 30 minutes Pending Labs Laboratory Tests Test 11/18/16 04:21 White Blood Count 8.910^3/ul (4.8-10.8) Red Blood Count 3.9310^6/ul (4.20-5.40) Hemoglobin 11.6g/dl (12.0-16.0) Hematocrit 33.4% (37.0-47.0) Mean Corpuscular Volume 85.0fl (82.0-101.0) Mean Corpuscular Hemoglobin 29.5pg (29.0-33.0) Mean Corpuscular Hemoglobin Concent 34.7g/dl (32.0-37.0) Red Cell Distribution Width 11.5% (11.5-14.5) Platelet Count 75552^3/UL (140-415) Mean Platelet Volume 11.3fl (7.4-10.4) Neutrophils % 62.9% (39.0-77.0) Lymphocytes % 24.8% (15.0-51.0) Monocytes % 6.6% (0.0-11.0) Eosinophils % 4.6% (0.0-7.0) Basophils % 0.8% (0.0-2.0) Nucleated Red Blood Cells % 0.0/100WBC (0.0-0.0) Neutrophils # 5.610^3/ul (1.6-7.5) Lymphocytes # 2.210^3/ul (0.8-2.9) Monocytes # 0.610^3/ul (0.3-0.9) Eosinophils # 0.410^3/ul (0.0-0.5) Basophils # 0.110^3/ul (0.0-0.1) Nucleated Red Blood Cells # 0.010^3/ul (0.0-0.0) Sodium Level 141mmol/L (135-144) Potassium Level 4.2mmol/L (3.5-5.1) Chloride Level 105mmol/L (97-110) Carbon Dioxide Level 25mmol/L (21-31) Anion Gap 15 (8-16) Blood Urea Nitrogen 8mg/dl (7-20) Creatinine 0.76mg/dl (0.44-1.00) Glucose Level 136mg/dl (70-220) Calcium Level 8.3mg/dl (8.4-10.2) RUSSELL ADRIAN MD Nov 18, 2016 12:34
[2016-11-18 13:03] VITALS: BP 119/51; RESP 20
[2016-11-18 14:00] VITALS: BP 110/67; RESP 18
[2016-11-18] MEDS: ONDANSETRON 4 MG INJ IV PRN (18:48)
== END 2016-11-18 20:25 | disposition home or self-care (01) | DRG 349 ==
LOC: MS1 06:27
PROVIDERS: ADMIT Internal Medicine; ATTEND Internal Medicine
PROC: 06BY3ZC Excision of Hemorrhoidal Plexus, Percutaneous Approach (ICD-10-PCS; principal; 2016-11-17 12:30)
DX: K64.3 Fourth degree hemorrhoids (principal)
CPT/HCPCS: 80048; 80061; 83036; 83735; 84100; 84439; 84443; 85025; 85610; 85730; 88304; C9113; J0690; J1650; J2270; J2405; J2765; J3010; J3480; J7999

== ENCOUNTER 2016-11-20 15:27 | Emergency (ER) | payer BC ==
[~2016-11-20] VITALS: Ht 157.5 cm; Wt 49.5 kg
[~2016-11-20 15:27] MED LIST: DOCU-144 PO; HYDR-3498 PO
[2016-11-20 15:29] VITALS: Ht 157.5 cm; Wt 49.5 kg
[2016-11-20] MEDS ORDERED: SOD CHLORIDE 0.9% 1,000 ML IV STA (16:03)
[2016-11-20] MEDS ORDERED: DOCU-144 PO (16:33)
[2016-11-20 16:36] LABS: BASOPHILS % 0.5 % (0.0-2.0); EOSINOPHILS # 0.1 10^3/ul (0.0-0.5); HEMATOCRIT 30.7 % (37.0-47.0); HEMOGLOBIN 10.5 g/dl (12.0-16.0); LYMPHOCYTES % 14.1 % (15.0-51.0); MEAN CORPUSCULAR HEMOGLOBIN 30.2 pg (29.0-33.0); MEAN CORPUSCULAR HGB CONC 34.2 g/dl (32.0-37.0); MEAN CORPUSCULAR VOLUME 88.2 fl (82.0-101.0); MEAN PLATELET VOLUME 11.1 fl (7.4-10.4); MONOCYTE # 0.3 10^3/ul (0.3-0.9); NEUTROPHIL # 5.8 10^3/ul (1.6-7.5); NEUTROPHILS % 80.1 % (39.0-77.0); PLATELET COUNT 170 10^3/UL (140-415); RED BLOOD COUNT 3.48 10^6/ul (4.20-5.40); RED CELL DISTRIBUTION WIDTH 11.6 % (11.5-14.5); WHITE BLOOD COUNT 7.3 10^3/ul (4.8-10.8)
[2016-11-20 16:54] LABS: INR 0.95; PROTIME 12.7 Sec (12.2-14.2)
[2016-11-20 16:55] LABS: PARTIAL THROMBOPLASTIN TIME 27.6 Sec (25.0-35.0)
[2016-11-20 16:56] LABS: ALANINE AMINOTRANSFERASE 25 IU/L (13-69); ALBUMIN 4.1 g/dl (3.3-4.9); ALBUMIN/GLOBULIN RATIO 1.32; ALKALINE PHOSPHATASE 38 IU/L (42-121); ANION GAP 19 (8-16); ASPARTATE AMINO TRANSFERASE 23 IU/L (15-46); BILIRUBIN,INDIRECT 0.4 mg/dl (0-1.1); BILIRUBIN,TOTAL 0.4 mg/dl (0.2-1.3); BLOOD UREA NITROGEN 7 mg/dl (7-20); CALCIUM 9.5 mg/dl (8.4-10.2); CARBON DIOXIDE 31 mmol/L (21-31); CHLORIDE 99 mmol/L (97-110); CREATININE 0.66 mg/dl (0.44-1.00); GLUCOSE 176 mg/dl (70-220); POTASSIUM 4.6 mmol/L (3.5-5.1); SODIUM 144 mmol/L (135-144); TOTAL PROTEIN 7.2 g/dl (6.1-8.1)
[2016-11-20 17:08] LABS: TROPONIN-I < 0.012 ng/ml (0.00-0.12)
[2016-11-20] MEDS ORDERED: HYDR25SU23 PR (17:10)
[2016-11-20 17:41] VITALS: BP 101/56; PULSE 90; RESP 19; TEMP 97.3
--- NOTE | 2016-11-20 18:51 | ERD ---
ER Documentation Chief Complaint Date/Time DATE: 11/20/16 TIME: 18:49 Chief Complaint BLOOD IN STOOL SINCE LAST NIGHT , HEMORRHOIDECTOMY ON THURSDAY HPI Patient is a 28-year-old female who had recent hemorrhoid surgery on Thursday done by Dr. Malone who presents with rectal bleeding. She was discharged from the hospital on Thursday with a hemoglobin of 11. She had a bloody bowel movement last night. The patient spoke with Dr. Malone who told her that if she got worse to come to the ER. Since she continued to have some bleeding she came to the ER for further evaluation. ROS All systems reviewed and are negative except as per history of present illness. Medications Home Meds Active Scripts Hydrocortisone Acetate (Anusol-Hc) 25 Mg Supp.rect, 1 SUPP OR QHS Y for HEMORROID PAIN/ITCHING, #12 SUPP.RECT Prov:KRISTIN MO MD 11/20/16 Hydrocodone Bit-Acetaminophen (Hydrocodone Bit-APAP) 5-325MG Tablet, 1 TAB PO Q4H Y for PAIN LEVEL 4-7 for 5 Days, #10 TAB Prov:RUSSELL ADRIAN MD 11/18/16 Reported Medications Docusate Sodium* (Colace*) 100 Mg Capsule, 100 MG PO BID, #60 CAP 11/20/16 Discontinued Scripts Docusate Sodium* (Colace*) 100 Mg Capsule, 200 MG PO DAILY, #30 CAP Prov:RUSSELL ADRIAN MD 11/18/16 Allergies Allergies: Coded Allergies: No Known Allergy (Unverified , 11/20/16) NKA PER MS1 STEFANIA RODRÍGUEZ 11/16/16 PMhx/Soc History of Surgery: Yes (HEMORRHOIDECTOMY ) Anesthesia Reaction: No Hx Neurological Disorder: No Hx Respiratory Disorders: No Hx Cardiac Disorders: No Hx Psychiatric Problems: No Hx Miscellaneous Medical Probl: Yes (HEMORRHOIDS) Hx Alcohol Use: No Hx Substance Use: No Hx Tobacco Use: No Smoking Status: Never smoker FmHx Family History: No diabetes Physical Exam Vitals Vital Signs Date Time Temp Pulse Resp B/P Pulse Ox O2 Delivery O2 Flow Rate FiO2 11/20/16 17:41 97.3 90 19 101/56 100 Room Air 11/20/16 15:29 99.4 124 16 100/60 99 Physical Exam Const: No acute distress Head: Atraumatic Eyes: Normal Conjunctiva ENT: Normal External Ears, Nose and Mouth. Neck: Full range of motion..~ No meningismus. Resp: Clear to auscultation bilaterally Cardio: Regular rate and rhythm, no murmurs Abd: Soft, non tender, non distended. Normal bowel sounds Skin: No petechiae or rashes Back: No midline or flank tenderness Ext: No cyanosis, or edema Neur: Awake and alert Rectal: No external bleeding at this time Result Diagram: 11/20/16 1628 11/20/16 1628 Results 24 hrs Laboratory Tests Test 11/20/16 16:28 White Blood Count 7.310^3/ul Red Blood Count 3.4810^6/ul Hemoglobin 10.5g/dl Hematocrit 30.7% Mean Corpuscular Volume 88.2fl Mean Corpuscular Hemoglobin 30.2pg Mean Corpuscular Hemoglobin Concent 34.2g/dl Red Cell Distribution Width 11.6% Platelet Count 19945^3/UL Mean Platelet Volume 11.1fl Neutrophils % 80.1% Lymphocytes % 14.1% Monocytes % 4.0% Eosinophils % 1.0% Basophils % 0.5% Nucleated Red Blood Cells % 0.0/100WBC Neutrophils # 5.810^3/ul Lymphocytes # 1.010^3/ul Monocytes # 0.310^3/ul Eosinophils # 0.110^3/ul Basophils # 0.010^3/ul Nucleated Red Blood Cells # 0.010^3/ul Prothrombin Time 12.7Sec Prothrombin Time Ratio 1.0 INR International Normalized Ratio 0.95 Activated Partial Thromboplast Time 27.6Sec Sodium Level 144mmol/L Potassium Level 4.6mmol/L Chloride Level 99mmol/L Carbon Dioxide Level 31mmol/L Anion Gap 19 Blood Urea Nitrogen 7mg/dl Creatinine 0.66mg/dl Glucose Level 176mg/dl Calcium Level 9.5mg/dl Total Bilirubin 0.4mg/dl Direct Bilirubin 0.00mg/dl Indirect Bilirubin 0.4mg/dl Aspartate Amino Transf (AST/SGOT) 23IU/L Alanine Aminotransferase (ALT/SGPT) 25IU/L Alkaline Phosphatase 38IU/L Troponin I < 0.012ng/ml Total Protein 7.2g/dl Albumin 4.1g/dl Globulin 3.10g/dl Albumin/Globulin Ratio 1.32 Current Medications Medications (Trade) Dose Ordered Sig/Massiel Route PRN Reason Start Time Stop Time Status Last Admin Dose Admin Sodium Chloride (NS) 1,000 ml @ 1,000 mls/hr Q1H STAT IV 11/20/16 16:03 11/20/16 17:18 DC 11/20/16 16:30 Procedures/MDM Patient is a 36-year-old female who presents with rectal bleeding. The patient has a hemoglobin of 10.5 which is basically stable compared with her discharge hemoglobin. She did have tachycardia and was given 1 L of normal saline for fluid resuscitation. The patient will be discharged home and she has no active bleeding at this time. I did speak with Dr. Malone who can see her in the office as an outpatient. The patient will return for any worsening symptoms. I doubt life-threatening GI bleed at this time. Departure Diagnosis: Primary Impression: Hemorrhoids Hemorrhoid type: unspecified Qualified Code: K64.9 - Hemorrhoids, unspecified hemorrhoid type Additional Impression: Rectal hemorrhage Condition: Fair Patient Instructions: Rectal Bleed, Stable Referrals: DEANN MALONE M.D. Additional Instructions: SPECIALIST: YOU HAVE A MEDICAL CONDITION WHICH REQUIRES YOU TO SEE A SPECIALIST WITHIN THE NEXT 1-2 DAYS. PLEASE FOLLOW UP WITH YOUR PRIMARY PHYSICIAN FOR REFFERAL.IF YOU DO NOT HAVE A PRIMARY CARE PHYSICIAN AND/OR YOU CAN NOT AFFORD TO SEE A PHYSICIAN THE FOLLOWING RESOURCES HAVE BEEN SUPPLIED TO YOU. IT IS YOUR RESPONSIBILITY TO BE SEEN BY THE SPECIALIST KRISTIN MO MD Nov 20, 2016 18:51
== END 2016-11-20 17:43 | disposition home or self-care (01) ==
LOC: E/R 15:27
DX: K64.9 Unspecified hemorrhoids (principal)
CPT/HCPCS: 36415; 80053; 84484; 85025; 85610; 85730; 86850; 86900; 86901; J7030; Z7502

== ENCOUNTER 2016-11-26 13:26 | Outpatient (CLI) | payer BC ==
[~2016-11-26] VITALS: Ht 157.5 cm; Wt 50.2 kg
[~2016-11-26 13:26] MED LIST changes: +HYDR25SU23 PR
[2016-11-26 13:35] VITALS: BP 94/58; PULSE 86; RESP 16; Ht 157.5 cm; Wt 50.2 kg
--- NOTE | 2016-11-26 16:08 | PN ---
Date/Time of Note Date/Time of Note DATE: 11/26/16 TIME: 16:04 Assessment/Plan Assessment/Plan Assessment/Plan [facility] Progress Note Date of Service: 11/26/2016 Place of service: [facility] Today's Assessment & Plan: Overall stable and doing well. No indication of major postoperative complications or surgical site infections. No indication for acute surgical intervention. ED visit post op showed no clinically sig hemorrhage and patient seems to be doing well With above assessment, I've recommended the following for today: 1. F/u with PCP 2. F/u with us prn 3. Cont sitz baths and stool softener (Metamucil recommended) Thank you again for your great care of this very pleasant patient and wonderful family. If there are any questions, please feel free to call me at [phone]. Nature of presenting problem: Low severity Please note that, given the limited number of diagnoses or management options, the limited amount and/or complexity of data needed to be reviewed, and low to moderate risk of complications and/or morbidity or mortality, this qualifies as low complexity type of decision-making. Disclaimer: Inadvertent spelling and grammatical errors are likely due to EHR/ dictation software use and do not reflect on the quality of delivered patient care. Also, please note that the electronic time recorded on this node does not necessarily reflect the actual time of the visit. Updated clinical summary: Patient is a very-pleasant 36-year-old lady presenting with thrombosed external hemorrhoid with significant pain. She requires exam under anesthesia and likely , hemorrhoidectomy. Discharged home 11/18/2016. Brief ER visit for bleeding, but no clinically significant bleed found and sent home. Comorbidities: 1. Long-standing problems with internal and external hemorrhoids with difficulty to access to care; status post hemorrhoidectomy left posterior lateral external hemorrhoid tissue pedicle, 5:00 and hemorrhoidectomy right anterior pedicle internal hemorrhoid tissue pedicle, 11:00 [facility] 11/17/2016 Subjective: No major events or complaints other than above; no abd or perirectal pain and no longer taking pain medications; no n/v/d; no sob or cp; + flatus; + BM; + activity; no significant blood Objective: Vitals: See below Exam: GENERAL: On exam, the patient was lying in bed and appeared to be comfortable and in no acute distress. ABDOMEN: Soft, nontender and nondistended. Perianal wounds are clean, dry and intact without any evidence of erythema, edema, discharge, or bleeding. There are no peritoneal signs or guarding. SKIN: Skin appears to be pink and feels warm to touch. NEUROLOGIC: Patient is awake, alert, and follows commands appropriately. Exam/Review of Systems Vital Signs Vitals Vital Signs Date Time Temp Pulse Resp B/P Pulse Ox O2 Delivery O2 Flow Rate FiO2 11/26/16 13:35 97.9 86 16 94/58 99 Room Air DEANN MALONE M.D. Nov 26, 2016 16:08
== END 2016-11-26 16:45 | disposition home or self-care (01) ==
LOC: HPC 13:26
PROVIDERS: ATTEND Transplant Surgery
DX: Z09 Encounter for follow-up examination after completed treatment for conditions other than malignant neoplasm (principal); Z87.19 Personal history of other diseases of the digestive system
CPT/HCPCS: G0463

== ENCOUNTER 2017-07-23 21:00 | Emergency (ER) | END 2017-07-24 02:34 | disposition left against medical advice (07) ==